=== PATIENT | male | born 1955 | race Caucasian/White ===

== ENCOUNTER 2016-05-23 16:00 | Emergency (ER) | payer BC ==
[2016-05-23] MEDS ORDERED: LORazepam INJ* 2 MG/ML 1 ML VIAL IV ONE (16:40)
[2016-05-23] MEDS ORDERED: NS 0.9% 1000 ML* 2,000 ML IV ONE (16:40)
[2016-05-23] MEDS ORDERED: oxyCODONE TAB* 5 MG TAB PO ONE (17:33)
[2016-05-23] MEDS ORDERED: Morphine TAB Extended Release (*) 30 MG TAB.ER PO SCH (18:00)
[2016-05-23] MEDS ORDERED: Morphine TAB (NF) 15 MG TAB PO SCH (18:00)
[2016-05-23 18:37] LABS: Albumin 4.1 g/dL (3.2-5.2); BUN/Creatinine Ratio 14.8 (8-20); Calcium 9.3 mg/dL (8.6-10.3); EGFR African American 172.3 (>60); EGFR Non-African American 133.9 (>60); Globulin 2.8 g/dL (2-4); Magnesium 2.2 mg/dL (1.9-2.7); Potassium 3.7 mmol/L (3.5-5.0); Total Bilirubin 0.8 mg/dL (0.2-1.0); Total Protein 6.9 g/dL (6.4-8.9)
[2016-05-23 19:03] LABS: TSH (Thyroid Stimulating Horm) 3.07 mcIU/mL (0.34-5.60)
[2016-05-23 19:32] LABS: Hematocrit 37 % (42-52); Hemoglobin 12.4 g/dl (14.0-18.0); Mean Corpuscular HGB Conc 33 g/dl (31-36); Mean Corpuscular Hemoglobin 28 pg (27-31); Mean Corpuscular Volume 85 fL (80-94); Mean Platelet Volume 9 um3 (7.4-10.4); Red Blood Count 4.35 10^6/ul (4.0-5.4); Red Cell Distribution Width 15 % (10.5-15); White Blood Count 7.8 10^3/ul (3.5-10.8)
[2016-05-23 20:24] VITALS: BP 115/48
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
== END 2016-05-23 20:23 | disposition home or self-care (01) ==
LOC: ED 16:00
DX: R53.1 Weakness (principal); F41.9 Anxiety disorder, unspecified; Z87.891 Personal history of nicotine dependence
CPT/HCPCS: 36415; 80053; 83605; 83735; 83880; 84443; 85025; 93005; 96374; 99283; A9270-GY; J2060

== ENCOUNTER 2017-03-13 16:19 | Emergency (ER) | payer BC ==
[2017-03-13 18:15] VITALS: BP 131/77
--- NOTE | 2017-03-13 19:01 | ED ---
Upper Extremity Pain - HPI Summary HPI Summary: 62 yr old male with the complaint of left ring finger. He is on chemo for prostate cancer. His finger has been getting swollen and he cannot get the ring off. He is in no pain or discomfort. He wants the ring taken off. He was sent by his oncologist to have the ring taken off. - History of Current Complaint Chief Complaint: UCUpperExtremity Stated Complaint: RING STUCK ON LEFT RING RINGER Time Seen by Provider: 03/13/17 18:09 - Allergies/Home Medications Allergies/Adverse Reactions: Allergies Allergy/AdvReac Type Severity Reaction Status Date / Time Penicillins Allergy Intermediate Hives Verified 03/13/17 18:02 Home Medications: Home Medications Abiraterone (NF) [Zytiga (NF)] 1,000 mg PO DAILY 03/13/17 [History Confirmed ] Acetaminophen TAB* [Tylenol TAB*] 1,000 mg PO Q4H PRN MDD 3 grams 03/13/17 [ History Confirmed 03/13/17] Denosumab* [Xgeva*] 120 mg SC 03/13/17 [History] Flouocortisone 0.1 mg PO DAILY 03/13/17 [History] Leuprolide INJ [Eligard INJ] 7.5 mg IM 03/13/17 [History] PMH/Surg Hx/FS Hx/Imm Hx Endocrine/Hematology History: Denies: Hx Diabetes, Hx Systemic Lupus Erythematosus, Hx Thyroid Disease Cardiovascular History: Reports: Hx Hypercholesterolemia, Hx Rheumatic Fever - A CHILD, Other Cardiovascular Problems/Disorders - HIGH CHOLESTEROL Denies: Hx Congestive Heart Failure, Hx Hypertension, Hx Pacemaker/ICD Respiratory History: Reports: Hx Seasonal Allergies - Hay season, Hx Sleep Apnea - NO MACHINE Denies: Hx Asthma, Hx Chronic Obstructive Pulmonary Disease (COPD), Hx Lung Cancer GI History: Reports: Hx Gastroesophageal Reflux Disease, Hx Hiatal Hernia, Other GI Disorders - SYMPTOMATIC CHOLELITHIASIS Denies: Hx Ulcer Comment Only: Hx Gall Bladder Disease - Removal History: Denies: Hx Dialysis, Hx Renal Disease Musculoskeletal History: Reports: Hx Arthritis - Knees and back, Hx Back Problems - Continuing back pain from metastasis Denies: Hx Rheumatoid Arthritis Sensory History: Reports: Hx Contacts or Glasses Denies: Hx Hearing Aid, Other Sensory Impairments Opthamlomology History: Reports: Hx Contacts or Glasses Denies: Other Sensory Impairments Neurological History: Reports: Other Neuro Impairments/Disorders - PATIENT TAKING DEPAKOTE FOR ANGER MANAGEMENT Denies: Hx Transient Ischemic Attacks (TIA) Psychiatric History: Reports: Hx Depression - ON MEDICATION, Other Psychiatric Issues/Disorders - Mood Swings recieving topamax Denies: Hx Panic Disorder - Cancer History Cancer Type, Location and Year: prostate cancer with mets Hx Chemotherapy: Yes - 08/2015 Hx Radiation Therapy: Yes - Surgical History Surgery Procedure, Year, and Place: 1987 TONSILLECTOMY @ [place],. 1995 AND 1997 RIGHT KNEE ARTHROSCOPIC SURGERY, [place] X2. 2004 LEFT ELBOW NERVE RELOCATION, [place]. HEART CATHETERIZATION( NO STENTS) 10 YRS AGO. Gallbadders about 3 years ago. 1987 Vasectomy Hx Anesthesia Reactions: No - Immunization History Date of Influenza Vaccine: 04/2015 Infectious Disease History: No Infectious Disease History: Denies: Hx Hepatitis, Hx Human Immunodeficiency Virus (HIV), Traveled Outside the [place] in Last 30 Days - Family History Known Family History: Positive: None Negative: Cardiac Disease, Hypertension, Diabetes - Social History Alcohol Use: Rare Hx Substance Use: No Substance Use Type: Reports: None Hx Tobacco Use: No Smoking Status (MU): Former Smoker Have You Smoked in the Last Year: No Review of Systems Positive: Other - ring on left index finger that is swollen from chemo All Other Systems Reviewed And Are Negative: Yes Physical Exam Triage Information Reviewed: Yes Vital Signs On Initial Exam: Initial Vitals Temp Pulse Resp BP Pulse Ox 96.9 F 84 16 131/77 96 03/13/17 18:10 03/13/17 18:10 03/13/17 18:10 03/13/17 18:10 03/13/17 18:10 Vital Signs Reviewed: Yes Appearance: Positive: Well-Appearing, No Pain Distress Skin: Positive: Warm, Skin Color Reflects Adequate Perfusion ENT: Positive: Normal ENT inspection Respiratory/Lung Sounds: Positive: Other - normal breath sounds Musculoskeletal: Positive: Strength/ROM Intact, Other - his left ring finger has a ring with distal edema, no redness, no bruise. Neurological: Positive: Sensory/Motor Intact, Alert, Oriented to Person Place, Time Psychiatric: Positive: Normal - Gege Coma Scale Best Eye Response: 4 - Spontaneous Best Motor Response: 6 - Obeys Commands Best Verbal Response: 5 - Oriented Procedures - Procedure Summary Procedure Summary: The patient had the ring on the left finger remove by me using ring cutters and then plyers. He tolerated this well. Diagnostics - Vital Signs Vital Signs Temp Pulse Resp BP Pulse Ox 03/13/17 18:10 96.9 F 84 16 131/77 96 - Laboratory Lab Statement: Any lab studies that have been ordered have been reviewed, and results considered in the medical decision making process. Course/Dx - Course Course Of Treatment: 62 yr old with ring removed from finger. Plan DC home in good condition. - Diagnoses Provider Diagnoses: Tight ring on finger, removal of ring from finger Discharge - Discharge Plan Condition: Good Disposition: HOME Referrals: Hebert Muir MD [Primary Care Provider] - 5 Days Additional Instructions: Your ring was removed from your finger. return for any redness, increased swelling or pain. Follow up with your primary doctor.
== END 2017-03-13 19:06 | disposition home or self-care (01) ==
LOC: UCCORT 16:19
DX: M79.89 Other specified soft tissue disorders (principal); Z87.891 Personal history of nicotine dependence; Z92.21 Personal history of antineoplastic chemotherapy
CPT/HCPCS: 99211; G0463

== ENCOUNTER 2018-08-10 11:40 | Emergency (ER) | payer BC ==
[2018-08-10] MEDS ORDERED: Lidocaine PATCH 5%* 1 PATCH TRANSDERM ONE (12:15)
[2018-08-10] MEDS ORDERED: Ketorolac INJ* 60 MG/2 ML VIAL IM ONE (12:15)
[2018-08-10] MEDS ORDERED: HYDROmorphone INJ1* 1 MG/ML SYRINGE IM ONE (12:17)
--- NOTE | 2018-08-10 12:22 | ED ---
Back Pain - HPI Summary HPI Summary: Patient is a 63 y/o M presenting to ED with complaints of lower back pain with radiation of pain to right hip and upper right thigh and some areas of numbness at lower back. He states that two days ago, he was bending over for something when he heard a popping sound. Patient states he has been experiencing back pain with numbness since. Patient reports that he had a similar previous episode which led him to being diagnosed with a tumor on L4. Hx of prostate cancer, patient is followed by Dr. Bolton. Patient reports that he contacted Dr. Kaur about his Sx, patient was advised to increase oxycodone from 5 mg to 10 mg. He is also on gabapentin 300 mg TID and depakote. Patient's is present in the room and notes that the patient has had increasing difficulty ambulating and standing up since the incident two days ago. As a result, they decided to come into ED for evaluation. Incontinence is denied. Hx of diabetes, kidney issues is denied. No allergies to pain medication are noted. On triage, pain is rated 8/10, movement is noted to aggravate Sx. Home medications and allergies are reviewed. - History of Current Complaint Chief Complaint: EDBackInjuryPain Stated Complaint: BACK PAIN Hx Obtained From: Patient Onset/Duration: Lasting Days - onset two days ago, Still Present, Worse Since Onset/Duration: Started Days Ago, Still Present Timing: Constant, Lasting Days Back Pain Location: Is Discrete @ - lower back, Radiates To - right hip, right upper leg Severity Currently: Severe Pain Intensity: 8 Pain Scale Used: 0-10 Numeric Aggravating Symptom(s): Movement Alleviating Symptom(s): Nothing Associated Signs And Symptoms: Positive: Numbness - lower back. Negative: Bladder Incontinence, Bowel Incontinence - Allergies/Home Medications Allergies/Adverse Reactions: Allergies Allergy/AdvReac Type Severity Reaction Status Date / Time Penicillins Allergy Intermediate Hives Verified 01/17/18 08:52 Home Medications: Home Medications [place]-223 Dichloride [Xofigo] 1.49 kbq IV MONTHLY 08/10/18 [History Confirmed 08/10/18] PMH/Surg Hx/FS Hx/Imm Hx Endocrine/Hematology History: Denies: Hx Diabetes, Hx Systemic Lupus Erythematosus, Hx Thyroid Disease Cardiovascular History: Reports: Hx Hypercholesterolemia, Hx Rheumatic Fever - A CHILD, Other Cardiovascular Problems/Disorders - HIGH CHOLESTEROL Denies: Hx Congestive Heart Failure, Hx Hypertension, Hx Pacemaker/ICD Respiratory History: Reports: Hx Seasonal Allergies - Hay season, Hx Sleep Apnea - NO MACHINE Denies: Hx Asthma, Hx Chronic Obstructive Pulmonary Disease (COPD), Hx Lung Cancer GI History: Reports: Hx Gastroesophageal Reflux Disease, Hx Hiatal Hernia, Other GI Disorders - SYMPTOMATIC CHOLELITHIASIS Denies: Hx Ulcer Comment Only: Hx Gall Bladder Disease - Removal History: Denies: Hx Dialysis, Hx Renal Disease Musculoskeletal History: Reports: Hx Arthritis - Knees and back, Hx Back Problems - Continuing back pain from metastasis Denies: Hx Rheumatoid Arthritis Sensory History: Reports: Hx Contacts or Glasses Denies: Hx Hearing Aid, Other Sensory Impairments Opthamlomology History: Reports: Hx Contacts or Glasses Denies: Other Sensory Impairments Neurological History: Reports: Other Neuro Impairments/Disorders - PATIENT TAKING DEPAKOTE FOR ANGER MANAGEMENT Denies: Hx Transient Ischemic Attacks (TIA) Psychiatric History: Reports: Hx Depression - ON MEDICATION, Other Psychiatric Issues/Disorders - Mood Swings recieving topamax Denies: Hx Panic Disorder - Cancer History Cancer Type, Location and Year: prostate cancer with mets Hx Chemotherapy: Yes - 08/2015 Hx Radiation Therapy: Yes - Surgical History Surgery Procedure, Year, and Place: [place] [facility] [place] 1997 RIGHT [place]IC [place] [facility] [place]. 2004 LEFT ELBOW [place]E [place]OCATION, [facility] [place] HEART CATHETERIZATION( NO STENTS) 10 YRS AGO. Gallbadders about 3 years ago. 1987 Vasectomy Hx Anesthesia Reactions: No - Immunization History Date of Influenza Vaccine: 04/2015 Infectious Disease History: No Infectious Disease History: Reports: Traveled Outside the [place] in Last 30 Days Denies: Hx Hepatitis, Hx Human Immunodeficiency Virus (HIV) - Family History Known Family History: Negative: Cardiac Disease, Hypertension, Diabetes - Social History Alcohol Use: Rare Hx Substance Use: No Substance Use Type: Reports: None Hx Tobacco Use: No Smoking Status (MU): Former Smoker Have You Smoked in the Last Year: No Review of Systems Musculoskeletal: Other - POSITIVE - LOWER BACK PAIN WITH RADIATION TO RIGHT HIP AND UPPER RIGHT THIGH, DIFFICULTY STANDING UP AND AMBULATING Positive: Numbness - LOWER BACK All Other Systems Reviewed And Are Negative: Yes Physical Exam - Summary Physical Exam Summary: Appearance: well appearing, no pain distress Skin: warm, dry, reflects adequate perfusion Head/face: normal Eyes: EOMI, LULY ENT: mucous membranes moist Neck: supple, non-tender Respiratory: CTA, breath sounds present Cardiovascular: RRR, pulses symmetrical Abdomen: non-tender, soft Bowel Sounds: present Musculoskeletal: strength/ROM intact; dimple at right side of sacroiliac joint, pain and tenderness at this area, no sciatic notch pain or tenderness Neuro: normal, sensory motor intact, A&Ox3 Triage Information Reviewed: Yes Vital Signs On Initial Exam: Initial Vitals Temp Pulse Resp BP Pulse Ox 97.8 F 87 18 141/85 93 08/10/18 11:45 08/10/18 11:45 08/10/18 11:45 08/10/18 11:45 08/10/18 11:45 Vital Signs Reviewed: Yes Diagnostics - Vital Signs Vital Signs Temp Pulse Resp BP Pulse Ox 08/10/18 11:57 156/83 08/10/18 11:45 97.8 F 87 18 141/85 93 - Laboratory Lab Statement: Any lab studies that have been ordered have been reviewed, and results considered in the medical decision making process. - CT lumbar spine ct CT Interpretation Completed By: Radiologist Summary of CT Findings: IMPRESSION: Progressive sclerotic and lytic lesions in the right sacroiliac joint on the. sacrum within the right ilium. Increased sclerosis in the left ilium. Healed old fracture of L5. There are small areas of increased in the L3, L2 and L1 vertebral body. Mild compression. of L2. Minimal lytic lesion is noted in the anterior inferior endplate of L2. These. findings are all new since previous exam. THIS REPORT WAS REVIEWED BY DR. VICTORIA. Re-Evaluation - Re-Evaluation First Eval Re-Evaluation Time: 13:43 Change: Improved Comment: Results of labs and tests were discussed. Patient's pain is controlled with lidocaine patch. He will be discharged to home and is advised to follow up with Dr. Bolton. He is agreeable with this. Back Pain Course/Dx - Course Course Of Treatment: Patient with known metastatic prostate cancer to the lower lumbar spine and SI joint area. He is feeling increased pain after trivial injury where he felt a pop in the area. CT scan shows progression of his metastatic process. He has no radicular symptoms and no weakness, numbness or saddle changes. He is not having difficulty with bowel or bladder. He was treated with relief here including use of topical lidocaine patch which greatly helped his pain. He'll follow up closely with his primary treating physician which is his oncologist. - Diagnoses Differential Diagnosis/HQI/PQRI: Positive: Arthritis, Cauda Equina Syndrome, Fracture, Herniated Disc, Osteoporosis Provider Diagnoses: Prostate cancer, Lumbar spine pain Discharge - Sign-Out/Discharge Documenting (check all that apply): Patient Departure - discharge Patient Received Moderate/Deep Sedation with Procedure: No - Discharge Plan Condition: Stable Disposition: HOME Prescriptions: Meloxicam(NF) [Mobic(NF)] 7.5 mg PO DAILY #10 tab Patient Education Materials: Prostate Cancer (DC), Osteolysis (ED) Forms: *Work Release Referrals: Hebert Muir MD [Primary Care Provider] - Kayla Bolton MD [Medical Doctor] - Additional Instructions: Called Dr. Bolton first thing in the morning to schedule prompt follow-up. You can obtain lidocaine patches over the counter under the brand name Salon Pas. You were able to take 1 additional oxycodone with each dosing as needed for increased pain. Take with Colace to prevent constipation. Return with uncontrolled pain, difficulty with bowel or bladder, weakness, numbness or other concerns as discussed. - Billing Disposition and Condition Condition: STABLE Disposition: Home - Attestation Statements Document Initiated by Annemarie: Yes Documenting Scribe: PANCHO LEE Provider For Whom Annemarie is Documenting (Include Credential): RENA VICTORIA MD Scribe Attestation: IPANCHO, scribed for RENA VICTORIA MD on 08/10/18 at 1446. Scribe Documentation Reviewed: Yes Provider Attestation: The documentation as recorded by the PANCHO bello accurately reflects the service I personally performed and the decisions made by me, RENA VICTORIA MD Status of Scribe Document: Viewed
[2018-08-10 14:53] VITALS: BP 124/75
[2018-08-10] MEDS ORDERED: Lidocaine Patch REMOVE* 1 NOTE MISC SCH (21:00)
== END 2018-08-10 14:53 | disposition home or self-care (01) ==
LOC: ED 11:40
DX: C61 Malignant neoplasm of prostate (principal); M54.5 Low back pain; S32.020A Wedge compression fracture of second lumbar vertebra, initial encounter for closed fracture; X50.1XXA Overexertion from prolonged static or awkward postures, initial encounter; Y92.9 Unspecified place or not applicable; R20.0 Anesthesia of skin; M53.3 Sacrococcygeal disorders, not elsewhere classified; F32.9 Major depressive disorder, single episode, unspecified; Z88.0 Allergy status to penicillin; Z87.891 Personal history of nicotine dependence
CPT/HCPCS: 72131; 96372; 99283; A9270-GY; J1170; J1885

== ENCOUNTER 2018-11-27 07:35 | Observation (INO) | payer BC ==
--- NOTE | 2018-11-27 07:49 | ED ---
Back Pain - HPI Summary HPI Summary: Patient is a 63 y/o M w/ Hx of stage 4 metastatic prostate cancer who presents to [facility] via EMS with complaints of worsened lower back pain. He reports that he has had worsened back pain over the past few days. When he went to stand this morning, 11/27/18, patient states that he collapsed to his knees and the floor secondary to pain. Patient reports that he had to be assisted off of the ground by EMS after falling. He states that the pain radiates from the right, lower side of his back across his spine, which he characterizes as an atypical presentation of his pain. Pain is rated 2-3/10 while lying flat but notes that the pain is aggravated by sitting up. He denies changes to urination and bowel movements, in particular noting no urinary or fecal incontinence. He notes he has neuropathy in his feet but does not note any atypical numbness. He denies numbness to his groin. He reports pain with lifting legs. Patient notes Hx of fractures and two tumors to his back and states that he had routine scans done two days ago, 11/25/18, at [facility] [place]. Patient is followed by Dr. Caraballo. He is currently on chemotherapy infusions every two weeks. Patient is on morphine 25 mg every 12 hours, oxycodone, 10 mg, up to six daily, and Flexeril, 10 mg. He states that he took all of his typical morning meds today and notes no recent changes in medications. Patient reports no fluids or food intake this morning. Patient does not report fever, chills, erythema of eyes, sore throat, chest pain , SOB, cough, abdominal pain, N/V, dysuria, hematuria, edema, rash and dizziness. Home medications and allergies are reviewed. In room, pulse 90, o2 95 , BP 127/80. - History of Current Complaint Stated Complaint: BACK PAIN PER EMS Time Seen by Provider: 11/27/18 07:36 Hx Obtained From: Patient Onset/Duration: Lasting Days, Still Present, Worse Since Onset/Duration: Started Days Ago, Still Present Back Pain Location: Is Discrete @ - lower back Severity Currently: Mild Pain Intensity: 3 Pain Scale Used: 0-10 Numeric Aggravating Symptom(s): Lifting - legs, sitting up Associated Signs And Symptoms: Positive: Other - does not report chills, erythema of eyes, sore throat, chest pain, SOB, cough, N/V, dysuria, hematuria, rash and dizziness. Negative: Swelling, Fever, Numbness - atypical, Abdominal Pain, Bladder Incontinence, Bowel Incontinence - Allergies/Home Medications Allergies/Adverse Reactions: Allergies Allergy/AdvReac Type Severity Reaction Status Date / Time Penicillins Allergy Intermediate Hives Verified 11/27/18 07:42 Home Medications: Home Medications Docusate Sodium [Dok] 100 mg PO DAILY PRN 11/27/18 [History Confirmed 11/27/18] Lactulose 480 ML BTL*STOCK USE 15 ml PO DAILY PRN 11/27/18 [History Confirmed ] Nystatin susp 16 oz 15 ml PO QID 11/27/18 [History Confirmed 11/27/18] Prochlorperazine 10 mg PO BID 11/27/18 [History Confirmed 11/27/18] oxyCODONE TAB* [Roxycodone TAB 5 mg*] 10 mg PO Q4H PRN 11/27/18 [History Confirmed 11/27/18] PMH/Surg Hx/FS Hx/Imm Hx Endocrine/Hematology History: Denies: Hx Diabetes, Hx Systemic Lupus Erythematosus, Hx Thyroid Disease Cardiovascular History: Reports: Hx Hypercholesterolemia, Hx Rheumatic Fever - A CHILD, Other Cardiovascular Problems/Disorders - HIGH CHOLESTEROL Denies: Hx Congestive Heart Failure, Hx Hypertension, Hx Pacemaker/ICD Respiratory History: Reports: Hx Seasonal Allergies - Hay season, Hx Sleep Apnea - NO MACHINE Denies: Hx Asthma, Hx Chronic Obstructive Pulmonary Disease (COPD), Hx Lung Cancer GI History: Reports: Hx Gastroesophageal Reflux Disease, Hx Hiatal Hernia, Other GI Disorders - SYMPTOMATIC CHOLELITHIASIS Denies: Hx Ulcer Comment Only: Hx Gall Bladder Disease - Removal History: Denies: Hx Dialysis, Hx Renal Disease Musculoskeletal History: Reports: Hx Arthritis - Knees and back, Hx Back Problems - Continuing back pain from metastasis Denies: Hx Rheumatoid Arthritis Sensory History: Reports: Hx Contacts or Glasses Denies: Hx Hearing Aid, Other Sensory Impairments Opthamlomology History: Reports: Hx Contacts or Glasses Denies: Other Sensory Impairments Neurological History: Reports: Other Neuro Impairments/Disorders Denies: Hx Transient Ischemic Attacks (TIA) Psychiatric History: Reports: Hx Depression - ON MEDICATION, Hx Panic Disorder - PANIC ATTACKS, Other Psychiatric Issues/Disorders - Mood Swings recieving topamax - Cancer History Cancer Type, Location and Year: prostate cancer with bone mets Hx Chemotherapy: Yes - 08/2015 Hx Radiation Therapy: Yes - Surgical History Surgery Procedure, Year, and Place: 1987 TONSILLECTOMY @ [facility] [place],. 1995 AND 1997 RIGHT KNEE ARTHROSCOPIC SURGERY, [facility] [place] X2. 2004 LEFT ELBOW NERVE RELOCATION, [facility] [place]. HEART CATHETERIZATION( NO STENTS) 10 YRS AGO. Gallbadders about 3 years ago. 1987 Vasectomy Hx Anesthesia Reactions: No - Immunization History Date of Influenza Vaccine: 04/2015 Infectious Disease History: No Infectious Disease History: Denies: Hx Hepatitis, Hx Human Immunodeficiency Virus (HIV), Traveled Outside the [place] in Last 30 Days - Family History Known Family History: Negative: Cardiac Disease, Hypertension, Diabetes - Social History Alcohol Use: Rare Hx Substance Use: No Substance Use Type: Reports: None Hx Tobacco Use: No Smoking Status (MU): Former Smoker Have You Smoked in the Last Year: No Review of Systems Negative: Fever, Chills Negative: Erythema Negative: Sore Throat Negative: Chest Pain Negative: Shortness Of Breath, Cough Negative: Abdominal Pain, Vomiting, Nausea Genitourinary: Other - no changes in urination or bowel movements Negative: dysuria, hematuria, incontinence - urinary or fecal Positive: Myalgia - lower back pain . Negative: Edema Neurological: Other - negative - dizziness Negative: Numbness All Other Systems Reviewed And Are Negative: Yes Physical Exam - Summary Physical Exam Summary: Constitutional: Well-developed, Well-nourished, Alert. (-) Distressed Skin: Warm, Dry HENT: Normocephalic; Atraumatic Eyes: Conjunctiva normal Neck: Musculoskeletal ROM normal neck. (-) JVD, (-) Stridor, (-) Tracheal deviation Cardio: Rhythm regular, rate normal, Heart sounds normal; Intact distal pulses; The pedal pulses are 2+ and symmetric. Radial pulses are 2+ and symmetric. (-) Murmur Pulmonary/Chest wall: Effort normal. (-) Respiratory distress, (-) Wheezes, (-) Rales Abd: Soft, (-) tenderness, (-) Distension, (-) Guarding, (-) Rebound Musculoskeletal: Patient has tenderness over L5-S1 area, right paraspinal tenderness is noted as well. He has 5/5 BLE strength (-) Edema Lymph: (-) Cervical adenopathy Neuro: Alert, Oriented x3, no saddle anesthesia Psych: Mood and affect Normal Triage Information Reviewed: Yes Vital Signs On Initial Exam: Initial Vitals Temp Pulse Resp BP Pulse Ox 98.8 F 90 18 127/80 92 11/27/18 07:37 11/27/18 07:37 11/27/18 07:37 11/27/18 07:37 11/27/18 07:37 Vital Signs Reviewed: Yes Diagnostics - Vital Signs Vital Signs Temp Pulse Resp BP Pulse Ox 11/27/18 07:37 98.8 F 90 18 127/80 92 - Laboratory Lab Statement: Any lab studies that have been ordered have been reviewed, and results considered in the medical decision making process. - Radiology LUMBAR SPINE X-RAY Radiology Interpretation Completed By: Radiologist Summary of Radiographic Findings: IMPRESSION: 1. L1-L3 compression fractures are new or increased from September 05, 2018. 2. Osteopenia. 3. Multilevel spondylosis. THIS REPORT WAS REVIEWED BY DR. MERCADO. Back Pain Course/Dx - Course Course Of Treatment: Patient is a 63 y/o M w/ Hx of stage 4 metastatic prostate cancer who presents to [facility] via EMS with complaints of worsened lower back pain. He reports that he has had worsened back pain over the past few days. When he went to stand this morning, 11/27/18, patient states that he collapsed to his knees and the floor secondary to pain. Patient reports that he had to be assisted off of the ground by EMS after falling. He denies changes to urination and bowel movements, in particular noting no urinary or fecal incontinence. He notes he has neuropathy in his feet but does not note any atypical numbness. He denies numbness to his groin. He reports pain with lifting legs. On physical exam, patient has tenderness over L5-S1 area, right paraspinal tenderness is noted as well. He has 5/5 BLE strength and no saddle anesthesia. LUMBAR SPINE X -RAY IMPRESSION: 1. L1-L3 compression fractures are new or increased from September 05, 2018. 2. Osteopenia. 3. Multilevel spondylosis. Patient's is concerned that she will not be able to care for the patient at home. As such, the patient will be admitted for nursing care, physical therapy. Patient's case was discussed with Dr. Caraballo, Dr. Caraballo will admit the patient to her services. - Diagnoses Provider Diagnoses: Compression fx, lumbar spine - Provider Notifications Discussed Care Of Patient With: Kayla Caraballo Time Discussed With Above Provider: 10:52 Instructed by Provider To: Other - Patient's case was discussed with Dr. Caraballo , Dr. Caraballo will admit the patient to her services. Discharge ED - Sign-Out/Discharge Documenting (check all that apply): Patient Departure - admit Patient Received Moderate/Deep Sedation with Procedure: No - Discharge Plan Condition: Stable Disposition: [facility] Referrals: Hebert Muir MD [Medical Doctor] - - Attestation Statements Document Initiated by Scribe: Yes Documenting Scribe: PANCHO LEE Provider For Whom Scribe is Documenting (Include Credential): ANDREWS MERCADO MD Scribe Attestation: I, PANCHO LEE, scribed for ANDREWS MERCADO MD on 11/27/18 at 1132. Status of Scribe Document: Ready
[2018-11-27 11:18] LABS: Hematocrit 36 % (42-52); Hemoglobin 11.8 g/dL (14.0-18.0); Mean Corpuscular HGB Conc 33 g/dL (31-36); Mean Corpuscular Hemoglobin 31 pg (27-31); Mean Corpuscular Volume 93 fL (80-94); Mean Platelet Volume 8.3 fL (7.4-10.4); Platelet Count 264 10^3/uL (150-450); Red Blood Count 3.87 10^6 /uL (4.18-5.48); Red Cell Distribution Width 18 % (10-15)
[2018-11-27 11:44] LABS: Albumin 4.1 g/dL (3.2-5.2); Albumin/Globulin Ratio 1.6 (1-3); BUN/Creatinine Ratio 14.6 (8-20); Calcium 9.3 mg/dL (8.6-10.3); EGFR African American 114.5 (>60); EGFR Non-African American 94.6 (>60); Globulin 2.6 g/dL (2-4); Potassium 4.1 mmol/L (3.5-5.0); Total Bilirubin 0.5 mg/dL (0.2-1.0); Total Protein 6.7 g/dL (6.4-8.9)
[2018-11-27] MEDS ORDERED: Docusate CAP* 100 MG PO PRN (12:28)
[2018-11-27] MEDS ORDERED: Cyclobenzaprine TAB* 10 MG PO PRN (12:28)
[2018-11-27] MEDS ORDERED: Acetaminophen TAB* 325 MG PO PRN (12:31)
[2018-11-27] MEDS ORDERED: HYDROmorphone INJ1* 1 MG/ML SYRINGE IV SLOW PU PRN (12:34)
[2018-11-27] MEDS ORDERED: Loperamide CAP* 2 MG PO PRN (12:43)
[2018-11-27] MEDS ORDERED: Enoxaparin(*) 40 MG/0.4 ML SYR SUBCUT SCH (13:00)
[2018-11-27] MEDS ORDERED: Morphine TAB Extended Release (*) 15 MG TAB.ER PO SCH (13:00)
[2018-11-27] MEDS: Morphine TAB Extended Release (*) 15 MG TAB.ER PO SCH ×2 (15:24→21:13)
[2018-11-27] MEDS: Gabapentin CAP(*) 300 MG PO SCH ×2 (15:25→21:12)
[2018-11-27] MEDS: Venlafaxine EXT RELEASE CAP* 75 MG PO SCH (21:12)
[2018-11-27] MEDS: Prochlorperazine TAB* 10 MG PO SCH (21:13)
[2018-11-28] MEDS: Morphine TAB Extended Release (*) 15 MG TAB.ER PO SCH ×2 (04:30→12:17)
[2018-11-28] MEDS: oxyCODONE TAB* 5 MG TAB PO PRN ×2 (08:03→12:14)
[2018-11-28] MEDS: Prochlorperazine TAB* 10 MG PO SCH (08:03)
[2018-11-28] MEDS: Venlafaxine EXT RELEASE CAP* 75 MG PO SCH (08:03)
[2018-11-28] MEDS: Gabapentin CAP(*) 300 MG PO SCH (08:04)
[2018-11-28] MEDS ORDERED: Meloxicam(NF) 7.5 MG TAB PO SCH (09:00)
[2018-11-28] MEDS ORDERED: Fludrocortisone Acetate TAB* 0.1 MG PO SCH (09:00)
[2018-11-28] MEDS ORDERED: CMCS: Calcitonin NASAL(NF) 200 UNITS/SPRAY NASAL.SPR ALT NARE SCH (09:00)
[2018-11-28] MEDS ORDERED: Divalproex ER TAB(*) 500 MG PO SCH (09:00)
[2018-11-28] MEDS ORDERED: Atorvastatin* 40 MG TAB PO SCH (09:00)
[2018-11-28 11:25] VITALS: BP 127/68
--- NOTE | 2018-11-28 20:15 | DS ---
CC: Dr. Caraballo * DISCHARGE SUMMARY: DATE OF ADMISSION: 11/27/18 DATE OF DISCHARGE: 11/28/18 PRIMARY ONCOLOGIST: Dr. Kayla Caraballo. ATTENDING PHYSICIAN: Dr. Reinaldo Briggs.* (DICTATED BY MONAE HOYOS) DISCHARGING PROVIDER: MONAE Hoyos. PRIMARY DISCHARGE DIAGNOSES: 1. Acute compression fractures of L1 through L3 - intractable pain secondary to these. 2. Metastatic prostate cancer. DISCHARGE MEDICATIONS: 1. Atorvastatin 40 mg p.o. daily. 2. Depakote 500 mg p.o. daily. 3. Docusate 100 mg p.o. daily. 4. Fludrocortisone 0.1 mg p.o. daily. 5. Gabapentin 300 mg p.o. 3 times daily. 6. Lactulose 15 mL p.o. daily. 7. Lupron 7.5 mg IM q.3 months. 8. Oxycodone 10 mg p.o. q.4 hours as needed for pain. 9. Compazine 10 mg p.o. twice daily as needed. 10. Effexor 75 mg p.o. twice daily. 11. Calcitonin 200 units alternating naris daily x4 weeks. 12. Flexeril 10 mg p.o. 3 times daily. 13. Meloxicam 7.5 mg p.o. daily. 14. Morphine extended release 15 mg p.o. q.8 hours. HOSPITAL IMAGING: Lumbar spine x-ray 11/27/18 demonstrate L1 through L3 compression fractures which are new or increased since 09/05/18 imaging. Bones are noted to be osteopenic in appearance. HOSPITAL COURSE: This is a 63-year-old gentleman with metastatic prostate cancer, under the care of Dr. Kayla Caraballo, currently treated with cabazitaxel with first day of cycle 4 being 11/12/18, who presented to the emergency department with complaints of severe back pain. The patient reports that he sustained a fall about 3 days prior to admission. His foot got stuck on his office chair when the office chair swung in 1 direction, he fell off of the chair onto his knees. He had a sudden onset of back pain at that time, but the pain was manageable over the next couple of days. He was subsequently preparing to get ready for work and when he attempted to stand up, he was in such excruciating pain. He fell to the floor and was unable to move. EMS was called and he was transported to the emergency department for evaluation. X- rays in the emergency department demonstrated compression fractures of L1 through L3 which appeared to be new or worse when compared to imaging from August. The patient has known metastatic prostate cancer and compression fracture of L2 that was diagnosed in July of this year. He has known osteopenia and is currently treated with Lupron. He unfortunately underwent dental extractions while treated with Xgeva and suffered bone regeneration complications and has subsequently been off of bisphosphonate therapy since that time. The patient coincidentally had a bone scan and CT earlier this week, which did not demonstrate any uptake in the lumbar spine indicating no metastatic disease in that region. It is most likely that his new compression fractures are secondary to his osteopenia as a result of pathologic fracture from bony metastasis. The patient was admitted for subsequent pain control. He had no neurologic deficits or other symptoms. His long-acting morphine was increased from 15 mg twice a day to 15 mg 3 times a day, and he felt that his pain was well controlled at rest. He still had significant pain with change in position which is to be expected given the acuity of his fractures. DISPOSITION AND FOLLOWUP PLAN: The patient is being discharged to home in stable condition where he lives with his . Arrangements have been made for him to have an adjustable bed on the main living floor and prescription was written for a lift chair. He will be seen in the oncology clinic at the time of his next infusion which will be 12/03/18. The patient is encouraged to call with any increasing pain or other complications as a result of this. MONAE HOYOS [id number]/[facility] #: [id number] PEDRO
== END 2018-11-28 14:10 | disposition home or self-care (01) ==
LOC: ED 07:35 → MED 12:21
PROVIDERS: ADMIT Internal Medicine; ATTEND Internal Medicine Hematology & Oncology
DX: S32.010A Wedge compression fracture of first lumbar vertebra, initial encounter for closed fracture (principal); S32.020A Wedge compression fracture of second lumbar vertebra, initial encounter for closed fracture; S32.030A Wedge compression fracture of third lumbar vertebra, initial encounter for closed fracture; X58.XXXA Exposure to other specified factors, initial encounter; Y92.9 Unspecified place or not applicable; M54.9 Dorsalgia, unspecified; M54.2 Cervicalgia; Z87.891 Personal history of nicotine dependence; Z85.46 Personal history of malignant neoplasm of prostate; Z88.0 Allergy status to penicillin; K21.9 Gastro-esophageal reflux disease without esophagitis; F32.9 Major depressive disorder, single episode, unspecified; Z79.899 Other long term (current) drug therapy; M85.80 Other specified disorders of bone density and structure, unspecified site; M47.9 Spondylosis, unspecified
CPT/HCPCS: 36415; 72110; 80053; 85027; 96372; 99217; 99219; 99284; A9270-GY; G0378; J1650; Q0164

== ENCOUNTER 2019-04-09 17:31 | Emergency (ER) | payer BC, MEDICARE ==
[2019-04-09] MEDS ORDERED: NS 0.9% 1000 ML** 1,000 ML IV ONE ×2 (17:58→19:10)
[2019-04-09] MEDS ORDERED: Ondansetron INJ* 2 MG/ML VIAL IV ONE (17:58)
--- NOTE | 2019-04-09 17:59 | ED ---
Influenza-Like Illness - HPI Summary HPI Summary: Patient complains of acute on chronic back pain, and abdominal cramping, nausea vomiting and diarrhea starting this morning. History of stage IV prostate cancer with metastases. Last chemotherapy 04/02/19. Denies fever, cough , sore throat, CP, SOB, change in urine. Medical history is prostate cancer, chronic back pain. - History of Current Complaint Chief Complaint: EDAbdPain Time Seen by Provider: 04/09/19 17:56 Hx Obtained From: Patient, Family/Aerosol Line Operator Onset/Duration: Sudden Onset, Lasting Hours Severity: Moderate Associated Signs & Symptoms: Vomiting, Diarrhea - Allergy/Home Medications Allergies/Adverse Reactions: Allergies Allergy/AdvReac Type Severity Reaction Status Date / Time Penicillins Allergy Intermediate Hives Verified 04/09/19 17:42 Home Medications: Home Medications Albuterol inh POWDER (NF) [Proair Respiclick] 1 puff INH .Q4-6H PRN 04/09/19 [ History Confirmed 04/09/19] Biotin 5 mg PO DAILY 04/09/19 [History Confirmed 04/09/19] Diphenoxylat/Atrop 2.5-0.025M* [Lomotil TAB*] 1 tab PO QID PRN 04/09/19 [ History Confirmed 04/09/19] Esomeprazole(NF) [NexIUM(NF)] 40 mg PO DAILY 04/09/19 [History Confirmed ] Fludrocortisone Acetate TAB* [Florinef TAB*] 0.1 mg PO DAILY 04/09/19 [History Confirmed 04/09/19] Fluticasone NASAL SPRAY 50MCG* [Flonase NASAL SPRAY 50MCG*] 2 spray BOTH NARES DAILY 04/09/19 [History Confirmed 04/09/19] Leuprolide Acetate [Eligard] 22.5 mg SUBCUT Q3M 04/09/19 [History Confirmed ] Loperamide HCl [Imodium A-D] 2 - 4 mg PO DAILY PRN 04/09/19 [History Confirmed 04/09/19] Melatonin 5 mg PO BEDTIME 04/09/19 [History Confirmed 04/09/19] Morphine TAB Extended Rel(*) [Ms Contin(*)] 15 mg PO BID MDD 30mg 04/09/19 [ History Confirmed 04/09/19] Venlafaxine EXT RELEASE CAP* [Effexor Xr CAP*] 75 mg PO BEDTIME 04/09/19 [ History Confirmed 04/09/19] Venlafaxine EXT RELEASE CAP* [Effexor Xr CAP*] 150 mg PO QAM 04/09/19 [History Confirmed 04/09/19] PMH/Surg Hx/FS Hx/Imm Hx Endocrine/Hematology History: Denies: Hx Diabetes, Hx Systemic Lupus Erythematosus, Hx Thyroid Disease Cardiovascular History: Reports: Hx Hypercholesterolemia, Hx Rheumatic Fever - A CHILD, Other Cardiovascular Problems/Disorders - HIGH CHOLESTEROL Denies: Hx Congestive Heart Failure, Hx Hypertension, Hx Pacemaker/ICD Respiratory History: Reports: Hx Seasonal Allergies - Hay season, Hx Sleep Apnea - NO MACHINE Denies: Hx Asthma, Hx Chronic Obstructive Pulmonary Disease (COPD), Hx Lung Cancer GI History: Reports: Hx Gastroesophageal Reflux Disease, Hx Hiatal Hernia, Other GI Disorders - SYMPTOMATIC CHOLELITHIASIS Denies: Hx Ulcer Comment Only: Hx Gall Bladder Disease - Removal History: Denies: Hx Dialysis, Hx Renal Disease Musculoskeletal History: Reports: Hx Arthritis - Knees and back, Hx Back Problems - Continuing back pain from metastasis Denies: Hx Rheumatoid Arthritis Sensory History: Reports: Hx Contacts or Glasses Denies: Hx Hearing Aid, Hx Hearing Problem, Other Sensory Impairments Opthamlomology History: Reports: Hx Contacts or Glasses Denies: Other Sensory Impairments EENT History: Denies: Hx Deafness Neurological History: Reports: Other Neuro Impairments/Disorders - L 5 mets, PAIN CLINIC PT. Denies: Hx Migraine, Hx Seizures, Hx Transient Ischemic Attacks (TIA) Psychiatric History: Reports: Hx Anxiety, Hx Depression - ON MEDICATION, Hx Panic Disorder - PANIC ATTACKS, Other Psychiatric Issues/Disorders - Mood Swings recieving topamax - Cancer History Cancer Type, Location and Year: prostate cancer with bone mets 04/2015 Hx Chemotherapy: Yes - 08/2015 *getting chemo treatment every 3 weeks@[facility] [place]-11/2018 Hx Radiation Therapy: Yes - 04/2015 - Surgical History Surgery Procedure, Year, and Place: 1987 TONSILLECTOMY @ [facility] [place],. 1995 AND 1997 RIGHT KNEE ARTHROSCOPIC SURGERY, [facility] [place] X2. 2004 LEFT ELBOW NERVE RELOCATION, [facility] [place]. HEART CATHETERIZATION( NO STENTS) 10 YRS AGO. Gallbadders about 3 years ago. 1987 Vasectomy Hx Anesthesia Reactions: No - Immunization History Date of Influenza Vaccine: 04/2015 Infectious Disease History: No Infectious Disease History: Denies: Hx Hepatitis, Hx Human Immunodeficiency Virus (HIV), Hx Tuberculosis , Traveled Outside the [place] in Last 30 Days - Family History Known Family History: Negative: Cardiac Disease, Hypertension, Diabetes - Social History Alcohol Use: None Hx Substance Use: No Substance Use Type: Reports: None Hx Tobacco Use: No Smoking Status (MU): Former Smoker Length of Time of Smoking/Using Tobacco: 12 years Have You Smoked in the Last Year: No Review of Systems Constitutional: Negative Eyes: Negative ENT: Negative Cardiovascular: Negative Respiratory: Negative Positive: Abdominal Pain, Vomiting, Diarrhea, Nausea Genitourinary: Negative Musculoskeletal: Negative Skin: Negative Neurological: Negative Psychological: Normal All Other Systems Reviewed And Are Negative: Yes Physical Exam - Summary Physical Exam Summary: Abdomen soft nontender. Triage Information Reviewed: Yes Vital Signs On Initial Exam: Initial Vitals Temp Pulse Resp BP Pulse Ox 97.8 F 111 20 131/86 98 04/09/19 17:37 04/09/19 17:37 04/09/19 17:37 04/09/19 17:37 04/09/19 17:37 Vital Signs Reviewed: Yes Appearance: Positive: Well-Appearing Skin: Positive: Warm Head/Face: Positive: Normal Head/Face Inspection Eyes: Positive: Normal ENT: Positive: Normal ENT inspection Neck: Positive: Supple Respiratory/Lung Sounds: Positive: Clear to Auscultation Cardiovascular: Positive: Normal Abdomen Description: Positive: Nontender Musculoskeletal: Positive: Normal Neurological: Positive: Normal Psychiatric: Positive: Normal AVPU Assessment: Alert - [place] Coma Scale Best Eye Response: 4 - Spontaneous Best Motor Response: 6 - Obeys Commands Best Verbal Response: 5 - Oriented Coma Scale Total: 15 Procedures - Sedation Patient Received Moderate/Deep Sedation with Procedure: No Diagnostics - Vital Signs Vital Signs Temp Pulse Resp BP Pulse Ox 04/09/19 17:37 97.8 F 111 20 131/86 98 - Laboratory Result Diagrams: 04/09/19 18:31 04/09/19 18:30 Lab Statement: Any lab studies that have been ordered have been reviewed, and results considered in the medical decision making process. Flu Symptom Course/Dx - Course Course Of Treatment: Patient complains of acute on chronic back pain, and abdominal cramping, nausea vomiting and diarrhea starting this morning. History of stage IV prostate cancer with metastases. Last chemotherapy 04/02/19. Denies fever, cough, sore throat, CP, SOB, change in urine. Medical history is prostate cancer, chronic back pain. Mildly tachycardic. Vital signs otherwise are within normal limits. HGB 10.3 which is patient baseline. CRP 23. Lactic 2.6. 2L Normal saline administered. Flu negative. - Diagnoses Provider Diagnoses: Nausea & vomiting, Diarrhea, Chronic back pain Discharge ED - Sign-Out/Discharge Documenting (check all that apply): Patient Departure - Discharge Plan Condition: Stable Disposition: HOME Prescriptions: Dicyclomine CAP* [Bentyl CAP*] 20 mg PO TID PRN 10 Days #60 cap PRN Reason: Pain Ondansetron ODT TAB* [Zofran 4 MG Odt TAB*] 4 mg PO Q8H PRN 4 Days #14 tab.odt PRN Reason: Nausea Patient Education Materials: Gastroenteritis (ED) Referrals: Kayla Caraballo MD [Primary Care Provider] - Additional Instructions: Take Zofran as directed if needed for nausea. Take Bentyl for stomach cramps as directed. Drink plenty of fluids to maintain hydration. Return to the ED for any worsening symptoms. - Billing Disposition and Condition Condition: STABLE Disposition: Home
[2019-04-09] MEDS ORDERED: Dicyclomine CAP* 10 MG PO ONE (18:22)
[2019-04-09 18:36] LABS: Hematocrit 31 % (42-52); Hemoglobin 10.3 g/dL (14.0-18.0); Mean Corpuscular HGB Conc 33 g/dL (31-36); Mean Corpuscular Hemoglobin 30 pg (27-31); Mean Corpuscular Volume 92 fL (80-94); Mean Platelet Volume 9.1 fL (7.4-10.4); Platelet Count 175 10^3/uL (150-450); Red Blood Count 3.38 10^6 /uL (4.18-5.48); Red Cell Distribution Width 17 % (10-15); White Blood Count 8.6 10^3/uL (3.5-10.8)
[2019-04-09 18:56] LABS: ALT 16 U/L (7-52); AST 14 U/L (13-39); Albumin 3.7 g/dL (3.2-5.2); Albumin/Globulin Ratio 1.4 (1-3); Alkaline Phosphatase 112 U/L (34-104); Anion Gap 10 mmol/L (2-11); BUN/Creatinine Ratio 14.8 (8-20); Blood Urea Nitrogen 9 mg/dL (6-24); C Reactive Protein 23.63 mg/L (<8.01); CO2 Carbon Dioxide 24 mmol/L (22-32); Calcium 8.7 mg/dL (8.6-10.3); Chloride 106 mmol/L (101-111); EGFR African American 160.5 (>60); EGFR Non-African American 132.7 (>60); Globulin 2.6 g/dL (2-4); Glucose 77 mg/dL (70-100); Potassium 3.6 mmol/L (3.5-5.0); Sodium 140 mmol/L (135-145); Total Protein 6.3 g/dL (6.4-8.9)
--- OUTSIDE RECORDS SUMMARY | 2019-04-09 19:04 | XMS REPORT | Continuity of Care Document ---
:1955 External Reference #:[id number] Author Name Pato Wong M.D. Address [address] [place] [address] Care Team Providers Name Role Phone Hebert Muir M.D. - Family Care Team Information Maintenance Specialist [phone] Medicine Kayla Caraballo M.D. - Hematology & Care Team Information Maintenance Specialist Oncology Problems Active Problems Provider Date Sleep apnea Onset: Hypercholesterolemia Onset: Carcinoma of prostate Onset: Optic disc edema Pato Wong M.D. Onset: 03/16/2019 Social History Type Date Description Comments Sex Unknown ETOH Use Denies alcohol use Tobacco Use Start: Unknown End: Patient is a former smoker Recreational Drug Use Denies Drug Use Smoking Status Reviewed: 03/16/19 Patient is a former smoker Allergies, Adverse Reactions, Alerts Active Allergies Reaction Severity Comments Date Penicillin Hives Severe 03/16/2019 Seasonal Moderate 03/16/2019 Medications Active Medications SIG Qnty Indications Ordering Provider Date Atorvastatin Calcium Hebert Muir, 40mg Tablets M.DFrancisca Myrbetriq TK 1 T PO qd Unknown 25mg Tablets ER 24HR Gabapentin Unknown 300mg Capsules Meloxicam Unknown 7.5mg Tablets Fludrocortisone Acetate Kayla Caraballo M.D. 0.1mg Tablets Morphine Sulfate ER TK 1 T PO bid Unknown 15mg Tablets ER Venlafaxine HCL ER TK 2 CS PO Unknown 75mg Caps ER qam And TK 1 24HR C PO qpm Cyclobenzaprine HCL TK 1 T PO tid Unknown 10mg Tablets prn Divalproex Sodium ER TK 1 T PO D Unknown 500mg Tablets ER 24HR Potassium Chloride Mari ER TK 1 T PO D Unknown 20Meq Tablets ER Oxycodone HCL Kayla Caraballo M.D. 10mg Tablets Albuterol Sulfate HFA Unknown 108(90Base) mcg/Act Aerosol Ondansetron HCL Unknown 4mg Tablets Prochlorperazine Maleate Unknown 10mg Tablets Immunizations Description No Information Available Vital Signs Description No Information Available Results Description No Information Available Procedures Description No Information Available Medical Devices Description No Information Available Encounters Description No Information Available Assessments Date Code Description Provider 03/16/2019 H47.10 Unspecified papilledema Pato Wong M.D. Plan of Treatment 03/16/2019 - Pato Wong M.D.H47.10 Unspecified papilledemaComments: Smoking can increase the risk of developing or worsening any eye related disease , as well as affect your overall health. If you are a smoker, we strongly recommend that you quit.If you are not a smoker, we strongly recommend that you do not start.Follow up:1 Month Follow Up DFE, VF 24-2, OCT NERVE You can expect to have your eyes dilated at your next visit. If Dr. Wong orders any additional testing, it may require extra time. We recommend that you bring sunglasses, as dilation drops often make you light sensitive until they wear off. We always recommend you bring someone to drive you home if you are uncomfortable driving with your eyes dilated. Ifyou have any questions before your next visit, feel free to call our office at . Functional Status Description No Information Available Mental Status Description No Information Available Referrals Description No Information Available
[2019-04-09] MEDS ORDERED: oxyCODONE TAB* 5 MG TAB PO ONE (19:25)
[2019-04-09] MEDS ORDERED: Cyclobenzaprine TAB* 10 MG PO ONE (19:25)
[2019-04-09 19:38] LABS: ABS Basophils 0.1 10^3/ul (0-0.2); ABS Eosinophils 0.2 10^3/ul (0-0.6); ABS Lymphocytes 1.4 10^3/ul (1.0-4.8); ABS Monocytes 0.4 10^3/ul (0-0.8); ABS Neutrophils 6.6 10^3/ul (1.5-7.7); Lymphocyte % 16.1 %; Nucleated Red Blood Cells % 0.1
[2019-04-09 20:05] LABS: Influenza A Molecular NEGATIVE (Negative); Influenza B Molecular NEGATIVE (Negative)
[2019-04-09] MEDS ORDERED: Diazepam TAB(*) 5 MG PO ONE (20:13)
[2019-04-09 21:05] VITALS: BP 109/59
== END 2019-04-09 21:04 | disposition home or self-care (01) ==
LOC: ED 17:31
DX: M54.9 Dorsalgia, unspecified (principal); G89.29 Other chronic pain; E78.00 Pure hypercholesterolemia, unspecified; Z85.46 Personal history of malignant neoplasm of prostate; Z79.899 Other long term (current) drug therapy; R19.7 Diarrhea, unspecified; Z88.0 Allergy status to penicillin
CPT/HCPCS: 36415; 80053; 83605; 83690; 85025; 86140; 87040; 96361; 96374; 99284; A9270-GY; J2405

== ENCOUNTER 2019-04-29 11:00 | Inpatient (IN) | payer BC, MEDICARE ==
[2019-04-29] MEDS ORDERED: Morphine INJ* 4 MG/ML 1 ML SYRINGE (NEW SYRINGE VERSION) IV PRN (15:00)
[2019-04-29] MEDS ORDERED: Ondansetron INJ* 2 MG/ML VIAL IV PRN (15:00)
[2019-04-29] MEDS ORDERED: oxyCODONE TAB* 5 MG TAB PO PRN (16:03)
[2019-04-29] MEDS ORDERED: Albuterol HFA INHALER* 8 gm MDI INH PRN (16:03)
[2019-04-29] MEDS ORDERED: Cyclobenzaprine TAB* 10 MG PO PRN (16:03)
[2019-04-29] MEDS: NS 0.9% 1000 ML** 1,000 ML IV SCH (16:05)
[2019-04-29] MEDS ORDERED: Magnesium CITRATE* 300 ML BTL PO ONE (16:07)
--- OUTSIDE RECORDS SUMMARY | 2019-04-29 16:08 | XMS REPORT | Continuity of Care Document ---
:1955 External Reference #:[id number] Author Name Pato Wong M.D. Address [address] [place] [address] Care Team Providers Name Role Phone Hebert Muir M.D. - Family Care Team Information Javascript Programmer [phone] Medicine Kayla Caraballo M.D. - Hematology & Care Team Information Javascript Programmer [phone] Oncology Problems Active Problems Provider Date Sleep apnea Onset: Hypercholesterolemia Onset: Carcinoma of prostate Onset: Optic disc edema Pato Wong M.D. Onset: 03/16/2019 Social History Type Date Description Comments Sex Unknown ETOH Use Denies alcohol use Tobacco Use Start: Unknown End: Patient is a former smoker Recreational Drug Use Denies Drug Use Smoking Status Reviewed: 04/16/19 Patient is a former smoker Allergies, Adverse [...] Available Results Description No Information Available Procedures Date Code Description Status 03/16/2019 47556 Scanning Computerized Opthalmic Diagnostic Posterior Seg Completed Retina 03/16/2019 93667 New Patient Comprehensive Exam Completed Medical Devices Description No Information Available Encounters Description No Information Available Assessments Date Code Description Provider 04/16/2019 H47.10 Unspecified papilledema Pato Wong M.D. 04/16/2019 H25.13 Age-related nuclear cataract, bilateral Pato Wong M.D. 03/16/2019 H47.10 Unspecified papilledema Pato Wong M.D. Plan of Treatment 04/16/2019 - Pato Wong M.D.H47.10 Unspecified papilledemaComments: Smoking can increase the risk of developing or worsening any eye related disease , as well as affect your overall health. If you are a smoker, we strongly recommend that you quit.If you are not a smoker, we strongly recommend that you do not start.Follow up:3 Month Follow Up DFE, OCT ON You can expect to have your eyes dilated at your next visit. If Dr. Wong orders any additional testing, it may require extra time. We recommend that you bring sunglasses, as dilation drops often make you light sensitive until they wear off. We always recommend you bring someone to drive you home if you are uncomfortable driving with your eyes dilated. If you have any questions before your next visit, feel free to call our office at .H25.13 Age-related nuclear cataract, bilateralComments:You have been diagnosed with cataracts. If you are happy with your vision as it is now, then we willsee you at your next scheduled appointment. If you feel like your vision is getting worse before your scheduled appointment, please call Erica at [phone]. Functional Status Description No Information Available Mental Status Description No Information Available Referrals Description No Information Available
[2019-04-29] MEDS: cefTRIAXone(*) 1 GM in NS 0.9% 50 ML* 50 ML IVPB SCH (17:42)
[2019-04-29] MEDS: Gabapentin CAP(*) 300 MG PO SCH (21:10)
[2019-04-29] MEDS: Melatonin 3 MG TAB PO SCH (21:10)
[2019-04-29] MEDS: Morphine TAB Extended Release (*) 15 MG TAB.ER PO SCH ×2 (21:10→22:56)
[2019-04-29] MEDS: Senna TAB 8.6 mg* TAB PO SCH (21:10)
[2019-04-29] MEDS: Venlafaxine EXT RELEASE CAP* 75 MG PO SCH (21:11)
[2019-04-30] MEDS: NS 0.9% 1000 ML** 1,000 ML IV SCH ×2 (03:35→22:16)
[2019-04-30 07:08] LABS: Hematocrit 26 % (42-52); Hemoglobin 8.9 g/dL (14.0-18.0); Mean Corpuscular HGB Conc 34 g/dL (31-36); Mean Corpuscular Hemoglobin 31 pg (27-31); Mean Corpuscular Volume 91 fL (80-94); Mean Platelet Volume 9.4 fL (7.4-10.4); Platelet Count 162 10^3/uL (150-450); Red Blood Count 2.87 10^6 /uL (4.18-5.48); Red Cell Distribution Width 18 % (10-15); White Blood Count 12.1 10^3/uL (3.5-10.8)
[2019-04-30 07:26] LABS: BUN/Creatinine Ratio 15.2 (8-20); Calcium 8.3 mg/dL (8.6-10.3); EGFR African American 119.1 (>60); EGFR Non-African American 98.4 (>60); Potassium 4.5 mmol/L (3.5-5.0)
--- NOTE | 2019-04-30 08:35 | PN ---
Progress Note - Progress Note Date of Service: 04/30/19 SOAP: Subjective: Has mild hematuri Notes pain under good control with current analgesia Afebril, UA does not suggest infection For evaluation today with Dr Sun Objective: Alert , oriented and conversant Skin with mild pallor Lungs CTA Cardiac RRR abdomen soft and nontender neuro nonfocal extremities 1+ edema Albuterol (Ventolin Hfa Inhaler*) 1 puff INH Q4H PRN PRN Reason: SHORTNESS OF BREATH Atorvastatin Calcium (Lipitor*) 40 mg PO DAILY [facility] Cyclobenzaprine HCl (Flexeril Tab*) 10 mg PO TID PRN PRN Reason: PAIN Divalproex Sodium (Depakote Er Tab(*)) 500 mg PO DAILY [facility] Fludrocortisone Acetate (Florinef Tab*) 0.1 mg PO DAILY [facility] Fluticasone Propionate (Flonase Nasal [place] 50mcg*) 2 spray BOTH NARES DAILY [facility] Gabapentin (Neurontin Cap(*)) 300 mg PO TID [facility] Last Admin: 04/29/19 21:10 Dose: 300 mg Sodium Chloride (Ns 0.9% 1000 Ml) 1,000 mls @ 75 mls/hr IV PER RATE [facility] Last Admin: 04/30/19 03:35 Dose: 75 mls/hr Ceftriaxone Sodium 1 gm/ (Sodium Chloride) 50 mls @ 100 mls/hr IVPB Q24H [facility] Last Admin: 04/29/19 17:42 Dose: 100 mls/hr Melatonin (Melatonin) 6 mg PO BEDTIME [facility] Last Admin: 04/29/19 21:10 Dose: 6 mg Morphine Sulfate (Morphine Inj (Syringe)*) 4 mg IV Q4H PRN PRN Reason: PAIN - MILD Morphine Sulfate (Ms Contin(*)) 15 mg PO BID [facility] Last Admin: 04/29/19 22:56 Dose: 15 mg Ondansetron HCl (Zofran Inj*) 4 mg IV Q4H PRN PRN Reason: NAUSEA/VOMITING Oxycodone HCl (Roxycodone Tab*) 10 mg PO Q4H PRN PRN Reason: PAIN Pantoprazole Sodium (Protonix Tab*) 40 mg PO DAILY [facility]; Protocol Polyethylene Glycol/Electrolytes (Miralax (17 Gm Dose Rg)) 17 gm PO DAILY [facility] Senna (Senokot 8.6 Mg Tab*) 1 tab PO BID [facility] Last Admin: 04/29/19 21:10 Dose: 1 tab Venlafaxine HCl (Effexor Xr Cap*) 150 mg PO BEDTIME [facility] Last Admin: 04/29/19 21:11 Dose: 150 mg Venlafaxine HCl (Effexor Xr Cap*) 75 mg PO QAM [facility] Vital Signs - 8 hr 04/30/19 04/30/19 02:21 03:03 Temperature 97.4 F Pulse Rate 84 Respiratory 16 16 Rate Blood Pressure 97/50 (mmHg) O2 Sat by Pulse 92 Oximetry Laboratory Results - last 24 hr 04/30/19 04/30/19 06:51 06:51 WBC 12.1 H RBC 2.87 L Hgb 8.9 L Hct 26 L MCV 91 MCH 31 MCHC 34 RDW 18 H Plt Count 162 MPV 9.4 Sodium 139 Potassium 4.5 Chloride 104 Carbon Dioxide 32 Anion Gap 3 BUN 12 Creatinine 0.79 Est GFR ( Amer) 119.1 Est GFR (Non-Af Amer) 98.4 BUN/Creatinine Ratio 15.2 Glucose 86 Calcium 8.3 L Intake and Output Last 24 Hours 04/28/19 04/29/19 04/30/19 05/01/19 06:59 06:59 06:59 06:59 Intake Total 1470 Balance 1470 Weight 246 lb 1.6 oz Intake: IV Fluids 1050 Oral 420 Assessment: Hormone refractory prostate cancer most recent treatment with Jevtana and Neulasta Leukocytosis likely inflammatory and mediated by Neulasta, no current evidence of infection Bilateral hydronephrosis secondary to local progression of prostate cancer Multifactorial anemia Plan: For Urology evaluation today and likely ureteral stenting Continue antibiotics periprocedure Contiue analgesia Monitor CBC and renal function KVNG Díaz MD
[2019-04-30] MEDS: Morphine TAB Extended Release (*) 15 MG TAB.ER PO SCH ×2 (08:37→21:29)
[2019-04-30] MEDS: Divalproex ER TAB(*) 500 MG PO SCH (08:38)
[2019-04-30] MEDS: Gabapentin CAP(*) 300 MG PO SCH ×3 (08:38→21:29)
[2019-04-30] MEDS: Pantoprazole TAB * 40 MG TAB PO SCH (08:39)
[2019-04-30] MEDS: Atorvastatin* 40 MG TAB PO SCH (08:39)
[2019-04-30] MEDS: Fludrocortisone Acetate TAB* 0.1 MG PO SCH (08:39)
[2019-04-30] MEDS: Venlafaxine EXT RELEASE CAP* 75 MG PO SCH ×2 (08:39→21:28)
[2019-04-30] MEDS: Fluticasone NASAL SPRAY 50MCG* 16 gm SPRAY BTL BOTH NARES SCH (08:43)
[2019-04-30] MEDS: Polyethylene Glycol 3350* 17 GM PACKET PO SCH (08:43)
[2019-04-30] MEDS: Senna TAB 8.6 mg* TAB PO SCH ×2 (08:43→21:30)
[2019-04-30 08:55] LABS: ABS Basophils 0.1 10^3/ul (0-0.2); ABS Eosinophils 0.1 10^3/ul (0-0.6); ABS Lymphocytes 1.4 10^3/ul (1.0-4.8); ABS Monocytes 0.6 10^3/ul (0-0.8); ABS Neutrophils 9.9 10^3/ul (1.5-7.7); Eosinophil % 0.7 %; Lymphocyte % 11.9 %
[2019-04-30] MEDS: cefTRIAXone(*) 1 GM in NS 0.9% 50 ML* 50 ML IVPB SCH (16:08)
[2019-04-30] MEDS ORDERED: fentaNYL* 50 MCG/ML 2 ML VIAL (100 MCG VIAL) ONE ×2 (17:32→18:40)
[2019-04-30] MEDS ORDERED: Midazolam* 1 MG/ML 2 ML VIAL (2 MG) ONE (17:32)
[2019-04-30] MEDS ORDERED: Dexamethasone IV* 4 MG/ML 1 ML (4 MG) ONE (18:30)
[2019-04-30] MEDS ORDERED: Propofol* 10 MG/ML 20 ML BTL ONE (18:30)
[2019-04-30] MEDS ORDERED: Ondansetron INJ* 2 MG/ML VIAL ONE (18:30)
[2019-04-30] MEDS ORDERED: Lidocaine 2% PF * 5 ML VIAL ONE (18:30)
[2019-04-30] MEDS ORDERED: Furosemide IV* 10 MG/ML 2 ML VIAL (20 MG) ONE (18:51)
[2019-04-30] MEDS ORDERED: Naloxone* 0.4 MG/ML 1 ML VIAL IV PRN (19:06)
[2019-04-30] MEDS: Melatonin 3 MG TAB PO SCH (21:28)
--- NOTE | 2019-05-01 03:40 | OP ---
CC: Dr. Kayla Caraballo * DATE OF OPERATION: 04/30/19 - ROOM #452 DATE OF : 53 SURGEON: Rajat Coombs MD ANESTHESIOLOGIST: Dr. Hampton. ANESTHESIA: General. PRE-OP DIAGNOSES: 1. Advanced prostate cancer. 2. Bilateral hydronephrosis. 3. Hematuria. POST-OP DIAGNOSES: 1. Advanced prostate cancer. 2. Bilateral hydronephrosis. 3. Hematuria. OPERATIVE PROCEDURE: 1. Transurethral resection of prostate. 2. Bilateral retrograde pyelograms. 3. Bilateral ureteral stent insertion. INDICATIONS: Oscar Goetz is a 64-year-old gentleman with advanced prostate cancer who was recently noted to have bilateral hydronephrosis. COMPLICATIONS: None. ESTIMATED BLOOD LOSS: Less than 50 cc. STENT USED: 8-[place] universal length stents, right and left ureter. POSTOPERATIVE CONDITION: Stable. OPERATIVE FINDINGS: 1. Enlarged prostate with likely tumor involvement left lobe extending towards bladder neck. 2. Bilateral hydronephrosis, right greater than left. DESCRIPTION OF PROCEDURE: After induction of general anesthesia, the patient was placed in dorsal lithotomy position. Sequential compression devices were in place and functioning. Initial cystoscopy revealed normal-appearing urethra ; moderately enlarged prostate, especially the left lobe, which appeared involved with what likely advanced prostate cancer extending towards the bladder neck; the right and left ureteral orifices were identified. The left orifice was cannulated. Retrograde pyelogram revealed mild fullness of the collecting system and an 8-[place] universal length stent was placed under fluoroscopic monitoring with good proximal and distal positioning obtained. Attention was directed to the right side. There was more fullness of the right collecting system on the retrograde and an 8-[place] stent was successfully placed on the right side also. The resectoscope was introduced and the obstructing tissue in the left lobe of the prostate close to the bladder neck was resected. I did not make any attempt to do a complete transurethral resection of the prostate since that was not necessary and once tissue at the bladder neck was resected, hemostasis was secured using the coagulating current. A 24-[place] was placed for bladder drainage. The patient tolerated the procedure satisfactorily and was transferred back to the recovery area in stable condition. [id number]/[facility] #: [id number] [facility]
[2019-05-01] MEDS: Fluticasone NASAL SPRAY 50MCG* 16 gm SPRAY BTL BOTH NARES SCH (07:18)
[2019-05-01 08:39] LABS: Hematocrit 30 % (42-52); Hemoglobin 9.8 g/dL (14.0-18.0); Mean Corpuscular HGB Conc 33 g/dL (31-36); Mean Corpuscular Hemoglobin 30 pg (27-31); Mean Corpuscular Volume 91 fL (80-94); Mean Platelet Volume 8.8 fL (7.4-10.4); Platelet Count 207 10^3/uL (150-450); Red Blood Count 3.26 10^6 /uL (4.18-5.48); Red Cell Distribution Width 18 % (10-15); White Blood Count 16.6 10^3/uL (3.5-10.8)
[2019-05-01 08:55] LABS: BUN/Creatinine Ratio 10.8 (8-20); Calcium 8.2 mg/dL (8.6-10.3); EGFR African American 128.4 (>60); EGFR Non-African American 106.2 (>60); Potassium 3.9 mmol/L (3.5-5.0)
[2019-05-01] MEDS: Polyethylene Glycol 3350* 17 GM PACKET PO SCH (08:58)
[2019-05-01] MEDS: Senna TAB 8.6 mg* TAB PO SCH (08:58)
[2019-05-01] MEDS: Morphine TAB Extended Release (*) 15 MG TAB.ER PO SCH ×2 (08:59→20:07)
[2019-05-01] MEDS: Gabapentin CAP(*) 300 MG PO SCH ×3 (08:59→20:08)
[2019-05-01] MEDS: Pantoprazole TAB * 40 MG TAB PO SCH (08:59)
[2019-05-01] MEDS: Fludrocortisone Acetate TAB* 0.1 MG PO SCH (09:00)
[2019-05-01] MEDS: Atorvastatin* 40 MG TAB PO SCH (09:00)
[2019-05-01] MEDS: Venlafaxine EXT RELEASE CAP* 75 MG PO SCH ×2 (09:00→20:08)
[2019-05-01] MEDS: Divalproex ER TAB(*) 500 MG PO SCH (09:00)
[2019-05-01 09:34] LABS: ABS Basophils 0.2 10^3/ul (0-0.2); ABS Lymphocytes 1.7 10^3/ul (1.0-4.8); ABS Monocytes 0.7 10^3/ul (0-0.8); ABS Neutrophils 14.1 10^3/ul (1.5-7.7); Eosinophil % 0.1 %; Lymphocyte % 9.9 %
--- NOTE | 2019-05-01 10:07 | PN ---
Progress Note - Progress Note Date of Service: 05/01/19 SOAP: Subjective: [Doing well. Went to the OR yesterday evening for retrograde pyelogram and bilateral ureteral stent placement. Small amount of likely malignant tissue resected from from the urethral neck. Bilateral ureteral obstruction appears to be secondary to local bladder progression of prostate CA. This am, Oscar reports that his back pain improved, rates it at a 2-3/10. London catheter is in place. Urine is blood tinged, but no clots noted. No c/o abd pain,n/v. Bowels are moving. Objective: [ Vital Signs: Temp Pulse Resp BP Pulse Ox 98 F 94 14 106/59 89 05/01/19 07:55 05/01/19 07:55 05/01/19 08:59 05/01/19 07:55 05/01/19 07:55 Albuterol (Ventolin Hfa Inhaler*) 1 puff INH Q4H PRN PRN Reason: SHORTNESS OF BREATH Atorvastatin Calcium (Lipitor*) 40 mg PO DAILY [facility] Last Admin: 05/01/19 09:00 Dose: 40 mg Cyclobenzaprine HCl (Flexeril Tab*) 10 mg PO TID PRN PRN Reason: PAIN Divalproex Sodium (Depakote Er Tab(*)) 500 mg PO DAILY [facility] Last Admin: 05/01/19 09:00 Dose: 500 mg Fludrocortisone Acetate (Florinef Tab*) 0.1 mg PO DAILY [facility] Last Admin: 05/01/19 09:00 Dose: 0.1 mg Fluticasone Propionate (Flonase Nasal Maxie 50mcg*) 2 spray BOTH NARES DAILY [facility] Last Admin: 05/01/19 07:18 Dose: Not Given Gabapentin (Neurontin Cap(*)) 300 mg PO TID [facility] Last Admin: 05/01/19 08:59 Dose: 300 mg Sodium Chloride (Ns 0.9% 1000 Ml) 1,000 mls @ 75 mls/hr IV PER RATE [facility] Last Admin: 04/30/19 22:16 Dose: 75 mls/hr Ceftriaxone Sodium 1 gm/ (Sodium Chloride) 50 mls @ 100 mls/hr IVPB Q24H [facility] Last Admin: 04/30/19 16:08 Dose: 100 mls/hr Melatonin (Melatonin) 6 mg PO BEDTIME [facility] Last Admin: 04/30/19 21:28 Dose: 6 mg Morphine Sulfate (Morphine Inj (Syringe)*) 4 mg IV Q4H PRN PRN Reason: PAIN - MILD Morphine Sulfate (Ms Contin(*)) 15 mg PO BID [facility] Last Admin: 05/01/19 08:59 Dose: 15 mg Ondansetron HCl (Zofran Inj*) 4 mg IV Q4H PRN PRN Reason: NAUSEA/VOMITING Oxycodone HCl (Roxycodone Tab*) 10 mg PO Q4H PRN PRN Reason: PAIN Pantoprazole Sodium (Protonix Tab*) 40 mg PO DAILY [facility]; Protocol Last Admin: 05/01/19 08:59 Dose: 40 mg Polyethylene Glycol/Electrolytes (Miralax (17 Gm Dose Rg)) 17 gm PO DAILY [facility] Last Admin: 05/01/19 08:58 Dose: Not Given Senna (Senokot 8.6 Mg Tab*) 1 tab PO BID [facility] Last Admin: 05/01/19 08:58 Dose: Not Given Venlafaxine HCl (Effexor Xr Cap*) 150 mg PO BEDTIME [facility] Last Admin: 04/30/19 21:28 Dose: 150 mg Venlafaxine HCl (Effexor Xr Cap*) 75 mg PO QAM [facility] Last Admin: 05/01/19 09:00 Dose: 75 mg Laboratory Results - last 24 hr 05/01/19 05/01/19 08:21 08:21 WBC 16.6 H RBC 3.26 L Hgb 9.8 L Hct 30 L MCV 91 MCH 30 MCHC 33 RDW 18 H Plt Count 207 MPV 8.8 Neut % (Auto) 84.6 Lymph % (Auto) 9.9 [place] % (Auto) 4.3 Eos % (Auto) 0.1 Baso % (Auto) 1.1 Absolute Neuts (auto) 14.1 H Absolute Lymphs (auto) 1.7 Absolute Monos (auto) 0.7 Absolute Eos (auto) 0.0 Absolute Basos (auto) 0.2 Absolute Nucleated RBC 0.0 Nucleated RBC % 0.0 Sodium 140 Potassium 3.9 Chloride 104 Carbon Dioxide 30 Anion Gap 6 BUN 8 Creatinine 0.74 Est GFR ( Amer) 128.4 Est GFR (Non-Af Amer) 106.2 BUN/Creatinine Ratio 10.8 Glucose 92 Calcium 8.2 L Exam: Gen: Well appearing 64 yo male in NAD HEENT: MMM CV: RRR, no m/r/g Resp: CTA, no w/c/r Abd: soft, nonTTP : London catheter in place Ext: no edema] Assessment: [This is a 64 yo male with castrate resistant metastatic prostate cancer receiving palliative Jevtana with neulasta support under the guidance of Dr Caraballo. He was admitted with bilateral hydronephrosis secondary to local bladder progression of prostate CA. He is now s/p bilateral ureteral stent placement and resection of obstructing tissue. ] Plan: [1. Bilateral hydronephrosis - no evidence of associated pyelonephritis - urine culture negative - received ceftriaxone in the perioperative period - will stop today - repeat renal US today to ensure resolution of hydronephrosis 2. Metastatic prostate CA - receiving palliative Jevtana - follow up with Dr Caraballo next week 3. Leukocytosis - no evidence of infection - likely a Neulasta effect - rise today is most likely reactive from yesterday' s procedure - repeat CBC tomorrow 4. Back pain - improved after ureteral stenting and resolution of constipation - cont home analgesics Dispo: anticipate dc home tomorrow with London in place. Follow with Dr Coombs Saturday for London removal. Follow up Dr Caraballo next week
[2019-05-01] MEDS ORDERED: Polyethylene Glycol 3350* 17 GM PACKET PO PRN (10:08)
[2019-05-01] MEDS ORDERED: Senna TAB 8.6 mg* TAB PO PRN (10:09)
[2019-05-01] MEDS: Melatonin 3 MG TAB PO SCH (20:07)
[2019-05-02 06:22] LABS: Hematocrit 29 % (42-52); Hemoglobin 9.6 g/dL (14.0-18.0); Mean Corpuscular HGB Conc 33 g/dL (31-36); Mean Corpuscular Hemoglobin 30 pg (27-31); Mean Corpuscular Volume 91 fL (80-94); Mean Platelet Volume 8.7 fL (7.4-10.4); Platelet Count 217 10^3/uL (150-450); Red Blood Count 3.21 10^6 /uL (4.18-5.48); Red Cell Distribution Width 18 % (10-15); White Blood Count 16.3 10^3/uL (3.5-10.8)
[2019-05-02] MEDS: Fluticasone NASAL SPRAY 50MCG* 16 gm SPRAY BTL BOTH NARES SCH (08:18)
[2019-05-02] MEDS: Pantoprazole TAB * 40 MG TAB PO SCH (08:19)
[2019-05-02] MEDS: Gabapentin CAP(*) 300 MG PO SCH (08:20)
[2019-05-02] MEDS: Atorvastatin* 40 MG TAB PO SCH (08:21)
[2019-05-02] MEDS: Venlafaxine EXT RELEASE CAP* 75 MG PO SCH (08:21)
[2019-05-02] MEDS: Morphine TAB Extended Release (*) 15 MG TAB.ER PO SCH (08:22)
[2019-05-02] MEDS: Fludrocortisone Acetate TAB* 0.1 MG PO SCH (08:22)
[2019-05-02 08:23] LABS: ABS Eosinophils 0.1 10^3/ul (0-0.6); ABS Lymphocytes 1.7 10^3/ul (1.0-4.8); ABS Monocytes 1.1 10^3/ul (0-0.8); ABS Neutrophils 13.3 10^3/ul (1.5-7.7); Eosinophil % 0.4 %; Lymphocyte % 10.7 %
[2019-05-02] MEDS: Divalproex ER TAB(*) 500 MG PO SCH (08:23)
[2019-05-02 09:14] VITALS: BP 116/73
--- NOTE | 2019-05-02 10:04 | DS ---
DISCHARGE SUMMARY: DATE OF ADMISSION:04/30/2019 DATE OF DISCHARGE: 05/02/19 ATTENDING PHYSICIAN: Dr. Kayla Caraballo in Oncology/Hematology. DISCHARGING PHYSICIAN: Dr. Kit Díaz. 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 DISCHARGE DIAGNOSIS: Hormone refractory prostate cancer with bilateral ureteral obstruction, status post partial transurethral resection of prostate with bilateral ureteral stent placement. INTERVENTIONS DURING THE HOSPITALIZATION: Include: 1. Electrolyte monitoring. 2. Administration of analgesia. 3. Administration of hydration. 4. Urology consultation. 5. Partial TURP with placement of bilateral ureteral stents. 6. Administration of prophylactic antibiotics. BRIEF HOSPITAL COURSE: This pleasant 64-year-old gentleman who carries a known diagnosis of hormone refractory prostate malignancy has been followed by Dr. Caraballo. His most recent treatment has included ongoing administration of androgen blockade with gonadotropin releasing hormone agonist as well as Jevtana with Neulasta support. He was seen in the office, at which time imaging had demonstrated bilateral hydronephrosis concerning for local progression of his prostate carcinoma at the level of the bladder. His renal function remained maintained, but he was having intermittent bilateral flank and lower abdominal discomfort as well as intermittent hematuria. He was admitted for further evaluation, planned cystoscopy with likely bilateral ureteral stent placement. He was gently hydrated. Analgesia was administered. He was seen by Dr. Coombs in Urology. The patient underwent partial TURP with placement of bilateral ureteral stents without complication. His white count was noted to be elevated at the time of admission and was likely felt to be multifactorial including that from recent Neulasta while receiving Jevtana as well as the bilateral ureteral obstruction. He remained afebrile. All cultures remained negative. Urinalysis did not suggest active infection. The patient underwent uncomplicated partial TURP with bilateral ureteral stent placement. A [place] catheter was placed. He had adequate urine output as well as control of his pain. It is planned that he will be discharged today on the date of 05/02/19. DISCHARGE MEDICATIONS: Include: 1. Albuterol inhalation 1 puff MDI q.4 hours p.r.n. 2. Atorvastatin 40 mg 1 p.o. daily. 3. Diphenoxylate/atropine 1 tablet p.o. 4 times a day p.r.n. 4. Depakote 500 mg tablet ER p.o. daily. 5. Esomeprazole or Nexium 40 mg p.o. daily. 6. Fludrocortisone 0.1 mg p.o. daily. 7. Fluticasone nasal spray 50 mcg 2 sprays to both nostrils daily. 8. Neurontin 300 p.o. t.i.d. 9. Eligard 22.5 mg subcu q.3 months. 10. Loperamide 2 to 4 mg p.o. daily p.r.n. 11. Melatonin 5 mg p.o. q.h.s. 12. Morphine extended release tablets 15 mg 1 p.o. b.i.d. 13. Oxycodone 10 mg p.o. q.4 hours p.r.n. 14. Venlafaxine extended release 150 mg p.o. q.a.m. and venlafaxine extended release 150 mg p.o. q.h.s. 15. Cyclobenzaprine also known as Flexeril 10 mg t.i.d. p.r.n. 16. Zofran ODT tablet 4 mg p.o. q.8 hours p.r.n. nausea. DISCHARGE ACTIVITY: As tolerated within limits of the indwelling London catheter. DISCHARGE DIET: Regular. FOLLOWUP: The patient will follow up with Dr. Caraballo early next week. He will also see Dr. Coombs on Saturday, at which time it is proposed that his London catheter be removed. DISCHARGE CONDITION: Stable. DISPOSITION: To home. [id number]/CPS #: [id number] MTDD
== END 2019-05-02 10:40 | disposition home or self-care (01) | DRG 482 ==
LOC: MEDTELE 11:00 → OBSVTOIN 04-30 11:00
PROVIDERS: ADMIT Internal Medicine Hematology & Oncology; ATTEND Internal Medicine Hematology & Oncology
PROC: 0T788DZ Dilation of Bilateral Ureters with Intraluminal Device, Via Natural or Artificial Opening Endoscopic (ICD-10-PCS; 2019-04-30)
PROC: 0VB08ZZ Excision of Prostate, Via Natural or Artificial Opening Endoscopic (ICD-10-PCS; principal; 2019-04-30 16:00)
DX: C61 Malignant neoplasm of prostate (principal); N13.8 Other obstructive and reflux uropathy; N13.39 Other hydronephrosis; N40.1 Benign prostatic hyperplasia with lower urinary tract symptoms; R31.9 Hematuria, unspecified; M48.50XD Collapsed vertebra, not elsewhere classified, site unspecified, subsequent encounter for fracture with routine healing; M54.9 Dorsalgia, unspecified; Z19.2 Hormone resistant malignancy status; Z88.0 Allergy status to penicillin; Z79.899 Other long term (current) drug therapy; Z87.891 Personal history of nicotine dependence; Z80.42 Family history of malignant neoplasm of prostate
CPT/HCPCS: 36415; 74420; 76775; 80048; 85025; 88305; 88341; 88342; 94660; 99219; 99232; 99233; 99238; A9270-GY; C2625; G0378; J0696; J1100; J1940; J2250; J2270; J2405; J2704; J3010